=== PATIENT | female | born 1995 | race Caucasian/White ===

== ENCOUNTER 2021-05-04 10:00 | Emergency (ER) | payer OTHER ==
[~2021-05-04 10:00] MED LIST: ZOFRAN4 MG PO
[2021-05-04 12:24] LABS: INFLUENZA A NAA NEGATIVE (NEGATIVE)
[2021-05-04 12:26] LABS: BASOPHIL 0.2 % (0-2); EOSINOPHIL 0 % (0-5); HCT 36.6 % (37.0-47.0); LYMPHOCYTE 11.3 % (15-48); MCH 28.9 pg (25.0-31.0); MCHC 32.8 g/dL (32.0-36.0); MCV 88.2 fL (78.0-100.0); MONOCYTE 9.6 % (0-12); MPV 9.3 fL (6.0-9.5); NEUTROPHIL 78.7 % (41-80); NRBC 0; PLT 238 K/uL (150-400); RBC 4.15 M/uL (4.20-5.40); RDW 13.1 % (11.5-14.0); WBC 4.7 K/uL (4.0-10.5)
[2021-05-04 12:30] LABS: CORONAVIRUS 2019 SARS-COV-2 POSITIVE (NEGATIVE)
[2021-05-04 12:46] LABS: BILIRUBIN NEGATIVE (NEGATIVE); BLOOD NEGATIVE Ery/uL (NEGATIVE); CLARITY CLEAR (CLEAR); COLOR YELLOW (YELLOW); GLUCOSE (U) NORMAL (NORMAL); LEUKOCYTES NEGATIVE Leu/uL (NEGATIVE); NITRITE NEGATIVE (NEGATIVE); PROTEIN NEGATIVE (NEGATIVE); SPECIFIC GRAVITY >=1.030 (1.001-1.030); UROBILINOGEN 0.2 mg/dL (0.2-1.0); pH 5.5 (5.0-9.0)
[2021-05-04 12:52] LABS: ALBUMIN 3.8 g/dL (3.4-5.0); BILIRUBIN - TOTAL 0.2 mg/dL (0.2-1.0); BUN/CREAT RATIO (CALC) 13.8 RATIO; CREATININE 0.8 mg/dL (0.51-0.95); GLOBULIN (CALCULATION) 3.3 g/dL; POTASSIUM 3.5 mmol/L (3.5-5.1); TOTAL PROTEIN 7.1 g/dL (6.4-8.2)
[2021-05-04] MEDS ORDERED: ONDANSETRON ODT4 MG PO (13:18)
[2021-05-04] MEDS ORDERED: NAPROXEN500 MG PO (13:18)
== END 2021-05-04 14:05 | disposition home or self-care (01) ==
LOC: FER 10:00
PROVIDERS: Internal Medicine
DX: U07.1 COVID-19 (principal); D64.9 Anemia, unspecified; Z98.890 Other specified postprocedural states
CPT/HCPCS: 36415; 71045; 80053; 81003; 85025; J1885; J2405; U0002